=== PATIENT | male | born 1995 | race Caucasian/White ===

== ENCOUNTER 2018-09-21 21:39 | Emergency (ER) | payer BC ==
[~2018-09-21] VITALS: Ht 182.8 cm; Wt 136.1 kg
[~2018-09-21 21:39] MED LIST: BACTRIM DS 8001 TA1 PO; BENADRYL50 MG PO; CLARITIN10 MG PO; Motrin,Rufen800 MG PO; PREDNISONE10 MG PO; PREDNISONE20 MG PO; ZITHROMAX Z PA250 MG PO; ZYRTEC10 MG PO
[2018-09-21 21:40] VITALS: BP 120/75
[2018-09-21] MEDS ORDERED: AUGMENTIN 875875 MG PO (23:18)
== END 2018-09-22 00:03 | disposition home or self-care (01) ==
LOC: ED 21:39
DX: J32.9 Chronic sinusitis, unspecified (principal); R04.0 Epistaxis; Z91.048 Other nonmedicinal substance allergy status; Z79.899 Other long term (current) drug therapy

== ENCOUNTER 2019-04-20 03:24 | Emergency (ER) | payer BC ==
[~2019-04-20] VITALS: Ht 182.8 cm; Wt 136.1 kg
[2019-04-20 03:24] VITALS: BP 141/94
[~2019-04-20 03:24] MED LIST changes: +AUGMENTIN 875875 MG PO
== END 2019-04-20 05:56 | disposition home or self-care (01) ==
LOC: ED 03:24
DX: S60.111A Contusion of right thumb with damage to nail, initial encounter (principal); W23.0XXA Caught, crushed, jammed, or pinched between moving objects, initial encounter; Y93.89 Activity, other specified; Y92.89 Other specified places as the place of occurrence of the external cause; Y99.8 Other external cause status

== ENCOUNTER 2019-06-01 22:31 | Emergency (ER) | payer BC ==
[~2019-06-01] VITALS: Ht 182.8 cm; Wt 140.6 kg
[2019-06-01 22:42] VITALS: BP 131/85
[2019-06-01] MEDS ORDERED: KEFLEX500 M1 PO (23:10)
== END 2019-06-01 23:28 | disposition home or self-care (01) ==
LOC: ED 22:31
DX: L03.011 Cellulitis of right finger (principal); Z91.048 Other nonmedicinal substance allergy status

== ENCOUNTER → 2020-02-08 | Outpatient (CLI) | payer BC ==
[~2020-02-08] MED LIST changes: +KEFLEX500 M1 PO
== END | disposition home or self-care (01) ==
LOC: COVID19 09:13
PROVIDERS: ATTEND Family Medicine
DX: R50.9 Fever, unspecified (principal); Z20.828 Contact with and (suspected) exposure to other viral communicable diseases

== ENCOUNTER → 2020-10-07 | Outpatient (CLI) | payer BC | END | disposition home or self-care (01) | LOC: CT 09:00 | PROVIDERS: ATTEND Surgery | DX: K40.90 Unilateral inguinal hernia, without obstruction or gangrene, not specified as recurrent (principal) ==

== ENCOUNTER → 2021-01-15 | Outpatient (CLI) | payer BC | END | disposition home or self-care (01) | LOC: RAD 12:11 | PROVIDERS: ATTEND Family Medicine | DX: M25.562 Pain in left knee (principal) ==

== ENCOUNTER → 2023-05-03 | Outpatient (CLI) | payer BC | END | disposition home or self-care (01) | LOC: US 01:39 | PROVIDERS: ATTEND Nurse Practitioner | DX: D17.1 Benign lipomatous neoplasm of skin and subcutaneous tissue of trunk (principal) ==